=== PATIENT | female | born 1945 | race Caucasian/White ===

== ENCOUNTER → 2017-06-05 | Outpatient (CLI) | payer MEDICARE, OTHER ==
[~2017-06-05] MED LIST: ASP325T PO; ASP81TEC PO; SOLI5TAB4 PO
--- NOTE | 2017-06-06 14:25 | Diagnostic Imaging Report ---
Bilateral screening mammogram 2D views with tomosynthesis The current study was also evaluated with a Computer Aided Detection (CAD) system. INDICATION: Screening. No current complaints stated on the questionnaire. COMPARISON: 05/29/2016. FINDINGS: The breasts are composed of scattered fibroglandular densities. There is occasional benign-appearing calcification. Asymmetry in the outer aspect of the left breast persists from multiple prior exams without change. Allowing for technique and positional differences, no suspicious change is seen. IMPRESSION: No significant change. ACR BI-RADS Category 2: Benign findings. Result letter will be mailed to the patient. Note: At least 10% of breast cancer is not imaged by mammography. Dictated by: Dictated on workstation # [id number]
== END ==
LOC: RAD 10:10
PROVIDERS: ATTEND Nurse Practitioner Family
DX: Z12.31 Encounter for screening mammogram for malignant neoplasm of breast (principal)
CPT/HCPCS: 77067

== ENCOUNTER → 2018-06-06 | Outpatient (CLI) | payer MEDICARE ==
--- NOTE | 2018-06-06 20:53 | Diagnostic Imaging Report ---
INDICATION: Routine screening. COMPARISON: Prior mammograms from 06/05/2017 and 05/29/2016. EXAMINATION: 2D and 3D bilateral screening mammography was performed with CAD. The current study was also evaluated with a Computer Aided Detection (CAD) system. FINDINGS: Scattered fibroglandular densities are identified, bilaterally. Benign-appearing calcifications are scattered throughout both breasts. Parenchymal asymmetry in the upper outer left breast is stable. No new mass or malignant appearing microcalcifications are seen. The axillae are unremarkable. IMPRESSION: No mammographic features suspicious for malignancy are identified. ACR BI-RADS Category 2: Benign findings. Result letter will be mailed to the patient. Note: At least 10% of breast cancer is not imaged by mammography. Dictated on workstation # [id number]
== END ==
LOC: RAD 09:53
PROVIDERS: ATTEND Family Medicine
DX: Z12.31 Encounter for screening mammogram for malignant neoplasm of breast (principal)
CPT/HCPCS: 77067

== ENCOUNTER → 2019-05-26 | Outpatient (CLI) | payer MEDICARE ==
--- NOTE | 2019-05-26 16:23 | Diagnostic Imaging Report ---
PROCEDURE: US Thyroid. TECHNIQUE: Multiple real-time grayscale images were obtained of the thyroid in various projections. INDICATION: Thyromegaly. FINDINGS: Right lobe: The right lobe is enlarged at 5.9 x 3.0 x 3.2 cm. It contains a dominant circumscribed hypoechoic solid vascularized mass at its middle third measuring 4.1 x 2.1 x 2.8 cm. It also has a lower pole nodule somewhat fasciculated and mixed cystic and solid measuring 1.6 cm. The left thyroid lobe is enlarged measuring 5.3 x 3.4 x 3.5 cm and is dominated by mixed solid and cystic mass measuring 5.0 x 2.7 x 3.1 cm. Solid vascularized component is relatively isoechoic to the remaining thyroidal parenchyma. IMPRESSION: Bilateral large greater than 4 cm solid vascularized thyroid masses. Given their size, these are TI-RADS 4 lesions and should be either followed with close surveillance in six months' time or consideration for sono-guided needle aspiration biopsy. Dictated by: Dictated on workstation # [id number]
== END ==
LOC: RAD 10:51
PROVIDERS: ATTEND Family Medicine
DX: E04.1 Nontoxic single thyroid nodule (principal); E07.89 Other specified disorders of thyroid
CPT/HCPCS: 76536

== ENCOUNTER → 2019-06-16 | Outpatient (CLI) | payer MEDICARE ==
--- NOTE | 2019-06-16 13:24 | Diagnostic Imaging Report ---
INDICATION: Routine screening. COMPARISON: Comparison is made with prior mammograms from 06/06/2018 and 06/05/2017. 2-D and 3-D bilateral screening mammography was performed. The current study was also evaluated with a Computer Aided Detection (CAD) system. 3-D tomosynthesis was also performed and reviewed. FINDINGS: Scattered fibroglandular densities are identified bilaterally. Benign calcifications are again noted bilaterally. Parenchymal asymmetry upper outer left breast appears stable. No dominant mass or malignant-appearing microcalcifications are seen. Axillae are unremarkable. IMPRESSION: No mammographic features suspicious for malignancy are identified. ACR BI-RADS Category 2: Benign findings. Result letter will be mailed to the patient. Note: At least 10% of breast cancer is not imaged by mammography. Dictated by: Dictated on workstation # [id number]
== END ==
LOC: RAD 10:56
PROVIDERS: ATTEND Family Medicine
DX: Z12.31 Encounter for screening mammogram for malignant neoplasm of breast (principal)
CPT/HCPCS: 77067

== ENCOUNTER → 2019-06-18 | Outpatient (CLI) | payer MEDICARE, OTHER ==
[~2019-06-18] MED LIST changes: +LIDOCAINE 1% INJ 20 ML 20 ML VIAL INJ ONE
--- NOTE | 2019-06-18 11:38 | Diagnostic Imaging Report ---
INDICATION: Left thyroid nodule. Patient presents for ultrasound-guided fine-needle aspiration. FINDINGS: Patient was brought to the procedure room, placed on table in the supine position. Ultrasound imaging of the left neck was performed to evaluate appropriate entry site. Left neck was then prepped and draped in the usual sterile fashion. A small amount of 1% lidocaine was utilized for local anesthesia. A total of four passes were made into the mixed solid and cystic nodule in the left lobe utilizing 25-gauge needles and fine-needle aspiration technique. A small amount of fluid within the cystic portion was aspirated as well. Hemostasis was obtained using manual compression. Patient tolerated the procedure well and left the department in stable condition. IMPRESSION: Successful ultrasound-guided fine-needle aspiration of the mixed solid and cystic nodule in the left lobe of the thyroid. Pathology results are currently pending. Dictated by: Dictated on workstation # [id number]
--- NOTE | 2019-06-18 11:40 | Diagnostic Imaging Report ---
INDICATION: Right thyroid nodule. Patient presents for ultrasound-guided fine-needle aspiration. FINDINGS: Patient was brought to the procedure room, placed on table in the supine position. Ultrasound imaging of the right neck was performed to evaluate appropriate entry site. The right neck was then prepped and draped in the usual sterile fashion. A small amount of 1% lidocaine was utilized for local anesthesia. A total of four passes were made into the dominant solid nodule in the right lobe of the thyroid utilizing 25-gauge needles and fine-needle aspiration technique. Hemostasis was obtained using manual compression. Patient tolerated the procedure well. IMPRESSION: Successful ultrasound-guided fine-needle aspiration of the dominant solid nodule in the right lobe of the thyroid. Pathology results are currently pending. Dictated by: Dictated on workstation # [id number]
== END ==
LOC: RAD 09:30
PROVIDERS: ATTEND Otolaryngology Otolaryngology/Facial Plastic Surgery
DX: E04.2 Nontoxic multinodular goiter (principal)

== ENCOUNTER 2019-07-30 14:46 | Outpatient (RCR) | payer MEDICARE, OTHER ==
[~2019-07-30 14:46] MED LIST changes: -LIDOCAINE 1% INJ 20 ML 20 ML VIAL INJ ONE
== END 2019-10-28 | disposition home or self-care (01) ==
PROVIDERS: ATTEND Physician Assistant Medical
DX: M25.562 Pain in left knee (principal); Z98.890 Other specified postprocedural states

== ENCOUNTER → 2020-04-01 | Outpatient (CLI) | payer MEDICARE, OTHER ==
--- NOTE | 2020-04-01 15:27 | Diagnostic Imaging Report ---
PROCEDURE: US Thyroid. TECHNIQUE: Multiple real-time grayscale images were obtained of the thyroid in various projections. INDICATION: Multinodular goiter. COMPARISON: Correlation is made with prior thyroid ultrasound from 05/26/2019. FINDINGS: Right lobe of the thyroid measures 6.0 x 2.2 x 3.4 cm and left lobe measures 6.4 x 3.1 x 3.3 cm. Mixed solid and cystic nodule occupying the majority of the left lobe of the thyroid measures 5.2 x 3.1 x 2.6 cm compared with 5.0 x 3.1 x 2.7 cm on prior. The circumscribed, homogeneous solid nodule in the mid and upper pole of right lobe of the thyroid measures 4.3 x 1.7 x 3.1 cm compared with 4.1 x 2.1 x 2.8 cm on prior. Smaller nodule in the lower pole of right lobe measures 1.6 x 0.8 x 1.2 cm compared with 1.6 x 1.0 x 1.1 cm on prior. No new masses detected. IMPRESSION: Bilateral thyroid nodules, very similar to prior exam when compared with study from 05/26/2019. Dictated by: Dictated on workstation # [id number]
== END ==
LOC: RAD 14:45
PROVIDERS: ATTEND Otolaryngology Otolaryngology/Facial Plastic Surgery
DX: E04.2 Nontoxic multinodular goiter (principal)
CPT/HCPCS: 76536

== ENCOUNTER → 2020-06-09 | Outpatient (CLI) | payer MEDICARE, OTHER ==
[~2020-06-09] VITALS: Ht 152.4 cm; Wt 71.0 kg
[~2020-06-09] MED LIST changes: +BAMLANIVIMAB 700 MG in NS 200 ML IV ONE; +EPINEPHrine INJECTION 1 MG/ML AMP IM PRN; +diphenhydrAMINE 50 MG/ML INJ (BENADRYL) IV PRN
[2020-06-09 08:47] VITALS: BP 156/76
[2020-06-09 11:00] VITALS: BP 155/70
== END ==
LOC: INFUSION 08:47
PROVIDERS: ATTEND Nurse Practitioner Family
DX: U07.1 COVID-19 (principal)

== ENCOUNTER → 2020-07-12 | Outpatient (CLI) | payer MEDICARE, OTHER ==
[~2020-07-12] MED LIST changes: -BAMLANIVIMAB 700 MG in NS 200 ML IV ONE; -EPINEPHrine INJECTION 1 MG/ML AMP IM PRN; -diphenhydrAMINE 50 MG/ML INJ (BENADRYL) IV PRN
--- NOTE | 2020-07-12 16:00 | Diagnostic Imaging Report ---
INDICATION: Routine screening. COMPARISON: 06/16/2019 and 06/06/2018. TECHNIQUE: 2D and 3D bilateral screening mammography was performed with CAD. FINDINGS: Scattered fibroglandular densities are identified bilaterally. Benign calcifications in both breasts are again noted. Parenchymal asymmetry in the outer left breast appears stable. No new mass or malignant appearing microcalcifications are seen. The axillae are unremarkable. IMPRESSION: No mammographic features suspicious for malignancy are identified. ACR BI-RADS Category 2: Benign findings. Result letter will be mailed to the patient. Note: At least 10% of breast cancer is not imaged by mammography. Dictated by: Dictated on workstation # [id number]
== END ==
LOC: RAD 10:29
PROVIDERS: ATTEND Family Medicine
DX: Z12.31 Encounter for screening mammogram for malignant neoplasm of breast (principal)
CPT/HCPCS: 77063; 77067

== ENCOUNTER → 2021-07-18 | Outpatient (CLI) | payer MEDICARE, OTHER ==
--- NOTE | 2021-07-18 13:36 | Diagnostic Imaging Report ---
Indication: Routine screening. Comparison is made with prior mammogram 07/12/2020 and 06/16/2019. 2-D and 3-D bilateral screening mammography was performed with CAD. Both breasts are heterogeneously dense, limiting the sensitivity of mammography. Parenchymal asymmetry in the outer left breast posteriorly appears stable. There are benign calcifications in both breasts. No mass or malignant-appearing microcalcifications are seen. Axillae are unremarkable. IMPRESSION: BI-RADS Category 2 No mammographic features suspicious for malignancy are identified. ACR BI-RADS Category 2: Benign findings. Result letter will be mailed to the patient. Note: At least 10% of breast cancer is not imaged by mammography. Dictated by: Dictated on workstation # [id number]
== END ==
LOC: RAD 11:00
PROVIDERS: ATTEND Family Medicine
DX: Z12.31 Encounter for screening mammogram for malignant neoplasm of breast (principal)
CPT/HCPCS: 77063; 77067

== ENCOUNTER → 2022-06-12 | Outpatient (CLI) | payer MEDICARE ==
--- NOTE | 2022-06-12 13:26 | Diagnostic Imaging Report ---
PROCEDURE: US Thyroid. TECHNIQUE: Multiple real-time grayscale images were obtained of the thyroid in various projections. INDICATION: Thyroid nodule Compared to 04/01/2020 Right thyroid lobe enlarged and heterogeneous 5.6 x 2.2 x 3.5 cm. It has a dominant solid upper pole nodule isoechoic to slightly hypoechoic vascularized and measuring 4.8 x 1.8 x 3.4 cm. This previously measured 4.1 x 2.1 x 2.8 cm and has mildly increased in size. This is a TI-RADS 4 lesion and given its size it should be biopsied if not already performed. Small nodule in the lower pole of the right thyroid lobe is mixed solid cystic and is unchanged 1.7 cm The left thyroid lobe enlarged heterogeneous and nodular 6.1 x 3.2 x 3.3 cm and contains a dominant mixed solid cystic mass with its soft tissue component vascularized and isoechoic unchanged from prior measuring 5 cm x 3.7 cm. An isthmic nodule is solid measuring 9 mm unchanged. IMPRESSION: The dominant solid hypoechoic vascularized right thyroid lobe mass is increased from prior and 4.8 cm maximal and if not already performed, biopsy would be recommended. The large left lobe mass is mixed solid cystic and stable. Dictated by: Dictated on workstation # [id number]
== END ==
LOC: RAD 08:29
PROVIDERS: ATTEND Family Medicine
DX: E04.1 Nontoxic single thyroid nodule (principal)
CPT/HCPCS: 76536

== ENCOUNTER → 2022-07-24 | Outpatient (CLI) | payer MEDICARE ==
[~2022-07-24] VITALS: Ht 154.9 cm; Wt 68.2 kg
[~2022-07-24] MED LIST changes: +LIDOCAINE 1% INJ 30 ML (XYLOCAINE) VIAL INJ ONE
--- NOTE | 2022-07-24 11:58 | Diagnostic Imaging Report ---
INDICATION: Right thyroid nodule. Patient presents for biopsy. Patient brought to the procedure room and placed on table in the supine position. Ultrasound imaging of the neck was performed to evaluate appropriate entry site. The right neck was then prepped and draped in usual sterile fashion. Small amount of 1% lidocaine was utilized for local anesthesia. A total of 4 passes were made into the dominant solid nodule right lobe of thyroid utilizing 25-gauge needles and fine-needle aspiration technique. Hemostasis was obtained using manual compression. Patient tolerated the procedure well and left the department in stable condition. IMPRESSION: Successful ultrasound guided fine-needle aspiration of the dominant solid nodule right lobe of the thyroid. Pathology results are currently pending. Dictated by: Dictated on workstation # [id number]
== END ==
LOC: RAD 10:33
PROVIDERS: ATTEND Otolaryngology Otolaryngology/Facial Plastic Surgery
DX: E04.1 Nontoxic single thyroid nodule (principal)
CPT/HCPCS: 10005

== ENCOUNTER → 2022-07-31 | Outpatient (CLI) | payer MEDICARE ==
[~2022-07-31] MED LIST changes: -LIDOCAINE 1% INJ 30 ML (XYLOCAINE) VIAL INJ ONE
--- NOTE | 2022-07-31 16:46 | Diagnostic Imaging Report ---
3D bilateral screening mammogram CAD. This study was compared to the prior exams of 07/18/2021, 07/12/2020, 06/16/2019 and06/06/2018. There are no current complaints. FINDINGS: There are scattered fibroglandular densities in both breasts which could obscure a lesion. On the MLO view of the left breast, near the pectoralis muscle, there is a 7 mm nodular asymmetry. This finding is difficult to identify with certainty on the craniocaudal view and I suspect it is in the far posterolateral aspect of the breast. I would recommend that a compression view of this area in the MLO projection be obtained. An XCC view should also be performed and if this finding can be identified in that projection, it should be compressed, as well. Ultrasound would also be recommended. The overall appearance of the breast has not changed significantly otherwise. There is no primary or secondary sign of malignancy noted. IMPRESSION: Additional mammographic views and ultrasound of the left breast would be recommended for further study. ACR BI-RADS Category 0: Incomplete. (Needs additional imaging evaluation). Result letter will be mailed to the patient. Note: At least 10% of breast cancer is not imaged by mammography. Dictated by: Dictated on workstation # [id number]
== END ==
LOC: RAD 09:57
PROVIDERS: ATTEND Nurse Practitioner Family
DX: Z12.31 Encounter for screening mammogram for malignant neoplasm of breast (principal)
CPT/HCPCS: 77063; 77067

== ENCOUNTER → 2022-08-13 | Outpatient (CLI) | payer MEDICARE ==
--- NOTE | 2022-08-13 13:06 | Diagnostic Imaging Report ---
INDICATION: Left breast density. Patient presents for additional views. Correlation is made with screening study from 07/31/2022. Unilateral left 2-D and 3-D diagnostic mammography was performed. There is includes spot compression ML, conventional 90 degrees lateral as well as exaggerated CC views. There is some residual density in the far posterior left breast at or just above the nipple line approximately 12 cm from the nipple. This may represent fibroglandular tissue. No definite densities identified on the exaggerated CC or CC views. IMPRESSION: Additional views show some mild residual density in the far posterior left breast just above the nipple line and laterally located. While this could represent superimposed tissue, mass cannot entirely excluded. Further evaluation of this area with ultrasound is recommended and will be performed today. ACR BI-RADS Category 0: Incomplete. (Needs additional imaging evaluation). Result letter will be mailed to the patient. Note: At least 10% of breast cancer is not imaged by mammography. BI-RADS 0 Dictated by: Dictated on workstation # [id number]
--- NOTE | 2022-08-13 15:07 | Diagnostic Imaging Report ---
INDICATION: Left breast density. This study is performed for further evaluation. COMPARISON: Correlation is made with the diagnostic mammogram from earlier this same day and the screening mammogram from 07/31/2022. FINDINGS: Sonographic interrogation of the upper and outer aspect of the left breast was performed. No sonographic abnormality is seen. No solid or cystic mass is detected. IMPRESSION: No sonographic abnormality is seen. The density noted mammographically may represent superimposed tissue. Even so, a followup left mammogram in 6 months is recommended to show continued stability. ACR BI-RADS Category 3: Probably benign findings. Dictated by: Dictated on workstation # [id number]
== END ==
LOC: RAD 12:42
PROVIDERS: ATTEND Nurse Practitioner Family
DX: R92.2 Inconclusive mammogram (principal)
CPT/HCPCS: 76642; 77065; G0279

== ENCOUNTER → 2023-02-26 | Outpatient (CLI) | payer MEDICARE ==
--- NOTE | 2023-02-27 12:05 | Diagnostic Imaging Report ---
PROCEDURE: US Thyroid. TECHNIQUE: Multiple real-time grayscale images were obtained of the thyroid in various projections. INDICATION: Right thyroid nodule. COMPARISON: 06/12/2022. FINDINGS: Right thyroid lobe: Size (cm): 6.3 x 3.4 x 3.6 Echotexture: Normal Vascularity: Mildly increased. Nodules: There is a dominant nodule in the right [id number] thyroid measuring up to 4.3 cm in size which is solid and isoechoic, previously 4.8 cm. In the inferior right thyroid, there is a 1.9 cm isoechoic mostly solid nodule, previously 1.7 cm. Isthmus: Size (cm): 1 Nodules: There is a hypoechoic solid nodule measuring 0.8 cm. Left thyroid lobe: Size (cm): 6.4 x 3.3 x 3.6 Echotexture: Heterogeneous Vascularity: Mildly increased Nodules: There is a large and dominant nodule in the left thyroid which is solid and mostly isoechoic measuring up to 5.7 cm, previously 5 cm. IMPRESSION: 1. Large bilateral thyroid nodules, appear overall similar in size to the prior exam. Dominant nodules have previously been biopsied. 2. No new nodules are seen which require follow-up. 3. Mildly heterogeneous and hypervascular thyroid, can be seen with thyroiditis. Dictated by: Dictated on workstation # [id number]
== END ==
LOC: RAD 10:51
PROVIDERS: ATTEND Otolaryngology Otolaryngology/Facial Plastic Surgery
DX: E04.2 Nontoxic multinodular goiter (principal)
CPT/HCPCS: 76536

== ENCOUNTER → 2023-02-27 | Outpatient (CLI) | payer MEDICARE ==
--- NOTE | 2023-02-27 13:55 | Diagnostic Imaging Report ---
Indication: Six-month follow-up left breast density. Correlation is made with prior mammogram from 07/31/2022 and 08/13/2022. Unilateral left 2-D and 3-D diagnostic mammography was performed. CAD. The current study was also evaluated with a Computer Aided Detection (CAD) system. There is a persistent density in the far posterior left breast projected above the nipple line and just inferior to the area of fibroglandular tissue in the upper outer left breast. No definite corresponding density is seen on the conventional CC or exaggerated CC views but this does appear to be laterally located based off of the tomographic images. Overall appearance appears similar to prior exam. No new abnormality is seen. There are scattered benign calcifications in the left breast. IMPRESSION: BI-RADS 0 Stable density in the far posterior slightly upper outer left breast when compared with examination 6 months earlier. Further evaluation with ultrasound is recommended and will be performed today. ACR BI-RADS Category 0: Incomplete. (Needs additional imaging evaluation). Result letter will be mailed to the patient. Note: At least 10% of breast cancer is not imaged by mammography. Dictated by: Dictated on workstation # [id number]
--- NOTE | 2023-02-27 15:05 | Diagnostic Imaging Report ---
INDICATION: Left breast density. COMPARISON: Correlation is made with the diagnostic mammogram from earlier this same day. FINDINGS: Sonographic interrogation of the upper outer left breast was performed from the 12 to 3 o'clock locations approximately 12 to 13 cm from the nipple. No sonographic abnormality is identified. No solid or cystic mass is detected. IMPRESSION: No sonographic abnormality is detected. The density seen mammographically remains somewhat suspicious but would be in a somewhat difficult location for biopsy; therefore, an MRI of the breasts would be recommended for further evaluation. ACR BI-RADS Category 0: Incomplete. (Needs additional imaging evaluation). Result letter will be mailed to the patient. Note: At least 10% of breast cancer is not imaged by mammography. Dictated by: Dictated on workstation # [id number]
== END ==
LOC: RAD 12:55
PROVIDERS: ATTEND Nurse Practitioner Family
DX: R92.8 Other abnormal and inconclusive findings on diagnostic imaging of breast (principal); R92.2 Inconclusive mammogram
CPT/HCPCS: 76642; 77065; G0279

== ENCOUNTER → 2023-04-23 | Outpatient (CLI) | payer MEDICARE ==
[2023-04-23] MEDS: GADOBUTROL 15 MMOL/15 ML (GADAVIST) VIAL IV ONE (13:13)
--- NOTE | 2023-04-23 19:00 | Diagnostic Imaging Report ---
EXAMINATION: MRI BREAST BILAT W W/O CON INDICATION: Problem solving MRI. Abnormality seen on mammogram. Evaluate for malignancy. TECHNIQUE: Utilizing a 1.5 Haleigh magnet, the patient was placed in the prone position with a dedicated breast coil in place. Axial STIR, T2 fat sat, T1 and T1 fat-sat images are obtained without contrast. Postcontrast high-resolution dynamic images are also obtained. Pre and post contrasted images are then evaluated with [employer] for evaluation of possible angiogenesis. 7 mL of Gadavist gadolinium contrast material was administered intravenously. COMPARISON: Screening mammogram performed on 07/31/2022 as well as diagnostic left breast mammogram and ultrasound exams performed on 08/13/2022 and 02/27/2023. FINDINGS: The breasts are composed almost entirely of fat. There is mild background parenchymal enhancement, with scattered foci of enhancement also related to background. There is no suspicious mass or non-mass enhancement in either breast. Specifically, there is no suspicious enhancement in area of mild asymmetric fibroglandular tissue in the upper outer left breast in the region of previously questioned mammographic asymmetry. There is no axillary or internal mammary adenopathy. Incidental note is made of fairly symmetric diffuse enlargement of the visualized thyroid gland, without discrete focal lesion identified. IMPRESSION: No MR evidence of malignancy in either breast. There is no suspicious finding to correspond with previously questioned mammographic asymmetry in the left breast, which is felt to represent normal fibroglandular tissue. Upon review of prior mammographic imaging, this has been fairly stable in appearance dating back to at least 2016 and requires no further followup. Incidental note is made of diffuse enlargement of the thyroid gland. No discrete lesion is seen in the visualized thyroid gland, and this may relate to thyroid goiter. Dedicated thyroid ultrasound can be performed as clinically indicated. BI-RADS Category 1: Negative RECOMMENDATIONS: Return to annual screening mammogram is recommended, for which the patient will be due in July,. Dictated by: Dictated on workstation # [id number]
== END ==
LOC: RAD 12:28
PROVIDERS: ATTEND Nurse Practitioner Family
DX: R92.8 Other abnormal and inconclusive findings on diagnostic imaging of breast (principal)
CPT/HCPCS: 77049